=== PATIENT | male | born 1950 | race Caucasian/White ===

== ENCOUNTER 2017-10-11 23:11 | Observation (INO) | payer MEDICARE ==
[~2017-10-11 23:11] MED LIST: ATOR10TA15 PO; GABA600T PO; HYDR25TA5 PO; LAMI250T PO; LOSA100T PO; METF1000 PO; METO25TA3 PO; WARF-22 PO
[2017-10-11] MEDS ORDERED: SODIUM CHLORIDE 0.9% FLUSH 10 ML FLUSH IV FLUSH PRN (23:45)
[2017-10-11] MEDS ORDERED: GLUCAGON 1 MG/ML VIAL OTHER PRN (23:45)
[2017-10-11] MEDS ORDERED: DEXTROSE 50% IN WATER 50 ML VIAL(D50) IV PUSH PRN (23:45)
[2017-10-12] VITALS (8 sets, daily range): BP systolic 114–136; BP diastolic 55–73; PULSE 72–95; RESP 18–20; TEMP 96.2–97; O2SAT 92–97
[2017-10-12] MEDS: ACETAMINOPHEN 325 MG TAB PO PRN ×4 (06:29→21:57)
[2017-10-12 07:46] LABS: INTERNATIONAL NORMALIZED RATIO 2.7 RATIO; PROTHROMBIN TIME - PATIENT 27.4 SEC (9.8-11.6)
[2017-10-12 08:09] LABS: CALCIUM 9.4 MG/DL (8.5-10.1)
[2017-10-12 08:10] LABS: BICARBONATE 26.3 MEQ/L (21.0-32.0)
[2017-10-12 08:21] LABS: AUTOMATED NEUTROPHIL # 5.8 TH/MM3 (1.8-7.7); BASOPHIL % 0.2 % (0.0-2.0); EOSINOPHIL # 0.2 TH/MM3 (0-0.4); EOSINOPHIL % 1.8 % (0.0-4.0); HEMATOCRIT 37.8 % (39.0-51.0); LYMPHOCYTE # 2.3 TH/MM3 (1.0-4.8); MEAN CELL VOLUME 86.9 FL (80.0-100.0); MEAN CORPUSCULAR HGB CONC 34.5 % (32.0-36.0); MEAN PLATELET VOLUME 9.1 FL (7.0-11.0); MONOCYTE # 0.6 TH/MM3 (0-0.9); PLATELET COUNT 173 TH/MM3 (150-450); RED BLOOD COUNT 4.34 MIL/MM3 (4.50-5.90); RED CELL DISTRIBUTION WIDTH 14.1 % (11.6-17.2); WHITE BLOOD COUNT 8.9 TH/MM3 (4.0-11.0)
[2017-10-12] MEDS: INSULIN ASPART SUPPLEMENTAL SCALE SQ SCH ×4 (08:48→21:00)
[2017-10-12] MEDS ORDERED: GABA800T PO (08:55)
[2017-10-12] MEDS ORDERED: METO-426 PO (08:56)
[2017-10-12] MEDS ORDERED: GABAPENTIN 300 MG CAP PO SCH (09:00)
[2017-10-12] MEDS: SODIUM CHLORIDE 0.9% FLUSH 10 ML FLUSH IV FLUSH SCH ×2 (09:04→21:49)
--- NOTE | 2017-10-12 11:16 | HHI.HP ---
HPI Service [facility] Primary Care Physician Non-Staff Admission Diagnosis Diagnoses: Chief Complaint: Syncopal episode Travel History International Travel<30 Days: No Contact w/Intl Traveler <30 Da: No Traveled to Known Affected Are: No History of Present Illness This is a pleasant 67 y/o male with Obesity, DM II, Hypertension, not taking medicines for hyperlipidemia, on chronic anticoagulation secondary to Left DVT, PAD status post revascularization and stent placement on left leg, he has no more information about this, status post Stroke five years ago with left Hemiparesis, now has peripheral Neuropathy on right arm, he states he was in his kitchen and when he tried to turn he tripped and fell without any dizziness, lightheadedness, no loss of consciousness he landed on his left hip developed pain, then his called 911 due to that he passed out he does not remember the episode. came to ER at [place] and I was told to come to perform the H and P but I do not have any information in the Chart. Review of Systems Constitutional: DENIES: Fever, Chills, Change in appetite Endocrine: DENIES: Heat/cold intolerance Eyes: DENIES: Blurred vision, Eye pain Except as stated in HPI: all other systems reviewed are Neg Past Family Social History Past Medical History Obesity DM II Hypertension Left Leg DVT PAD status post revascularization and stent placement on left leg Stroke five years ago with left Hemiparesis Peripheral Neuropathy on right arm chronic Warfarin use Past Surgical History Microdyscectomy for disc herniation Reported Medications Reported Meds & Active Scripts Active Reported Metoprolol Tartrate 75 Mg Tab 75 Mg PO BID Gabapentin 800 Mg Tab 800 Mg PO TID Metformin (Metformin HCl) 1,000 Mg Tab 1,000 Mg PO BIDPC Warfarin 10 Mg Tab 10 Mg PO DAILY Hydrochlorothiazide 25 Mg Tab 25 Mg PO BID Losartan (Losartan Potassium) 100 Mg Tab 100 Mg PO DAILY Allergies: Coded Allergies: No Known Drug Allergies (Verified Allergy, Unknown, 10/11/17) Active Ordered Medications Current Medications Medications (Trade) Dose Ordered Sig/Jodie Route Start Time Stop Time Status Last Admin (D50w (Vial) Inj) 50 ml UNSCH PRN IV PUSH 10/11/17 23:45 (Glucagon Inj) 1 mg UNSCH PRN OTHER 10/11/17 23:45 (NovoLOG SUPPLEMENTAL SCALE) 1 ACHS SLIDING SCALE SQ 10/12/17 08:00 (NS Flush) 2 ml UNSCH PRN IV FLUSH 10/11/17 23:45 (NS Flush) 2 ml BID IV FLUSH 10/12/17 09:00 10/12/17 09:04 (Lipitor) 10 mg HS PO 10/12/17 21:00 (Neurontin) 600 mg TID PO 10/12/17 09:00 10/12/17 08:50 (Coumadin) 10 mg DAILY@2000 PO 10/12/17 20:00 (Tylenol) 650 mg Q4H PRN PO 10/12/17 02:15 10/12/17 06:29 Pharmacy Profile Note 0 ml @ 0 mls/hr UNSCH OTHER 10/12/17 02:15 Family History Father with Alzheimer's Disease Mother with CAD Brother with DM Social History Lives with his Smokes half pack to one pack of cigarettes since he was 16 years of age denies other toxic habits. Physical Exam Vital Signs Vital Signs Date Time Temp Pulse Resp B/P (MAP) Pulse Ox O2 Delivery O2 Flow Rate FiO2 10/12/17 07:50 97.0 76 20 121/73 (89) 92 10/12/17 04:00 96.9 89 18 121/62 (81) 96 10/12/17 01:00 96.2 86 18 136/62 (86) 96 Physical Exam GENERAL: Obese patient. no acute distress. SKIN: No rashes, ecchymoses or lesions. Cool and dry. HEAD: Atraumatic. Normocephalic. No temporal or scalp tenderness. EYES: Pupils equal round and reactive. Extraocular motions intact. No scleral icterus. No injection or drainage. ENT: Nose without bleeding, purulent drainage or septal hematoma. Throat without erythema, tonsillar hypertrophy or exudate. Uvula midline. Airway patent. NECK: Trachea midline. No JVD or lymphadenopathy. Supple, nontender, no meningeal signs. CARDIOVASCULAR: Regular rate and rhythm without murmurs, gallops, or rubs. RESPIRATORY: Clear to auscultation. Breath sounds equal bilaterally. No wheezes , rales, or rhonchi. GASTROINTESTINAL: Abdomen soft, non-tender, nondistended. No hepato-splenomegaly , or palpable masses. No guarding. MUSCULOSKELETAL: Extremities without clubbing, cyanosis, or edema. NEUROLOGICAL: Awake and alert. no focal deficits, uses a cane to walk he states has easy loss of balance. Laboratory Laboratory Tests Test 10/12/17 06:50 10/12/17 09:10 White Blood Count 8.9 Red Blood Count 4.34 Hemoglobin 13.0 Hematocrit 37.8 Mean Corpuscular Volume 86.9 Mean Corpuscular Hemoglobin 30.0 Mean Corpuscular Hemoglobin Concent 34.5 Red Cell Distribution Width 14.1 Platelet Count 173 Mean Platelet Volume 9.1 Neutrophils (%) (Auto) 65.0 Lymphocytes (%) (Auto) 26.0 Monocytes (%) (Auto) 7.0 Eosinophils (%) (Auto) 1.8 Basophils (%) (Auto) 0.2 Neutrophils # (Auto) 5.8 Lymphocytes # (Auto) 2.3 Monocytes # (Auto) 0.6 Eosinophils # (Auto) 0.2 Basophils # (Auto) 0.0 CBC Comment DIFF FINAL Differential Comment Prothrombin Time 27.4 Prothromb Time International Ratio 2.7 Blood Urea Nitrogen 17 Creatinine 1.00 Random Glucose 118 Calcium Level 9.4 Sodium Level 136 Potassium Level 3.4 Chloride Level 100 Carbon Dioxide Level 26.3 Anion Gap 10 Estimat Glomerular Filtration Rate 75 Troponin I LESS THAN 0.02 Result Diagram: 10/12/17 0650 10/12/17 0650 Imaging CXR no acute disease head CT negative Hip X ray no fracture on left hip. Caprini VTE Risk Assessment Caprini VTE Risk Assessment: Mod/High Risk (score >= 2) Caprini Risk Assessment Model Point Value = 1 Point Value = 2 Point Value = 3 Point Value = 5 Age 41-60 Minor surgery BMI > 25 kg/m2 Swollen legs Varicose veins or History of unexplained or recurrent spontaneous Oral contraceptives or hormone replacement Sepsis (< 1 month) Serious lung disease, including pneumonia (< 1 month) Abnormal pulmonary function Acute myocardial infarction Congestive heart failure (< 1 month) History of inflammatory bowel disease Medical patient at bed rest Age 61-74 Arthroscopic surgery Major open surgery (> 45 min) Laparoscopic surgery (> 45 min) Malignancy Confined to bed (> 72 hours) Immobilizing plaster cast Central venous access Age >= 75 History of VTE Family history of VTE Factor V Leiden Prothrombin [id number] Lupus anticoagulant Anticardiolipin antibodies Elevated serum homocysteine Heparin-induced thrombocytopenia Other congenital or acquired thrombophilia Stroke (< 1 month) Elective arthroplasty Hip, pelvis, or leg fracture Acute spinal cord injury (< 1 month) Prophylaxis Regimen Total Risk Factor Score Risk Level Prophylaxis Regimen 0-1 Low Early ambulation 2 Moderate Order ONE of the following: *Sequential Compression Device (SCD) *Heparin 5000 units SQ BID 3-4 Higher Order ONE of the following medications: *Heparin 5000 units SQ TID *Enoxaparin/Lovenox 40 mg SQ daily (WT < 150 kg, CrCl > 30 mL/min) *Enoxaparin/Lovenox 30 mg SQ daily (WT < 150 kg, CrCl > 10-29 mL/min) *Enoxaparin/Lovenox 30 mg SQ BID (WT < 150 kg, CrCl > 30 mL/min) AND/OR *Sequential Compression Device (SCD) 5 or more Highest Order ONE of the following medications: *Heparin 5000 units SQ TID (Preferred with Epidurals) *Enoxaparin/Lovenox 40 mg SQ daily (WT < 150 kg, CrCl > 30 mL/min) *Enoxaparin/Lovenox 30 mg SQ daily (WT < 150 kg, CrCl > 10-29 mL/min) *Enoxaparin/Lovenox 30 mg SQ BID (WT < 150 kg, CrCl > 30 mL/min) AND *Sequential Compression Device (SCD) Assessment and Plan Assessment and Plan 1. Syncopal episode in a patient with multiple risk factors, no past Cardiac history but has PAD, status post Stroke with left hemiparesis five years ago, now with difficulties for ambulation, uses a cane, no EKG on chart, will get EKG, Echocardiogram, continue Cardiac Monitoring, Cardiac enzymes, continue Home medicines and follow with debt collection specialist consult, PT, OT consults. 2. Obesity strongly recommended diet and exercise. 3. DM II on hold Metformin continue sliding scale 4. Hypertension controlled re start his home medicines 5. Left Leg DVT five years ago on chronic Coumadin INR 2.7 will continue home Coumadin and Pharmacy consult for management 6. PAD status post revascularization and stent placement on left leg 7. Stroke five years ago with left Hemiparesis 8. Peripheral Neuropathy on right arm continue Gabapentin 9. Status post Fall with secondary left Hip trauma no fracture. follow laboratory. Hemoglobin A1C, Lipid Panel, Vitamin B12, Folate, TSH and Free T4. Cardiology consult Handicrafts Teacher consult PT and OT consult DVT prophylaxis with Warfarin INR 2.7 therapeutic. Code Status full code Discussed Condition With patient and nurse. Physician Certification 2 Midnight Certification Type: Admission for Inpatient Services Order for Inpatient Services The services are ordered in accordance with Medicare regulations or non- Medicare payer requirements, as applicable. In the case of services not specified as inpatient-only, they are appropriately provided as inpatient services in accordance with the 2-midnight benchmark. Estimated LOS (days): 3 days is the estimated time the patient will need to remain in the hospital, assuming treatment plan goals are met and no additional complications. Post-Hospital Plan: Not yet determined Se Pedraza MD Oct 12, 2017 11:16
[2017-10-12] MEDS: GABAPENTIN 400 MG CAP PO SCH ×2 (12:26→17:53)
[2017-10-12 14:06] LABS: TROPONIN I LESS THAN 0.02 NG/ML (0.02-0.05)
[2017-10-12 17:00] LABS: CHOLESTEROL 127 MG/DL (120-200); TRIGLYCERIDES 130 MG/DL (42-150)
[2017-10-12 17:04] LABS: FREE T4 1.14 NG/DL (0.76-1.46)
[2017-10-12 17:25] LABS: CHOLESTEROL/ HDL RATIO 3.69 RATIO; FOLATE 7.2 NG/ML (3.1-17.5); HDL CHOLESTEROL 34.4 MG/DL (40.0-60.0); LDL CHOLESTEROL 67 MG/DL (0-99)
[2017-10-12 18:29] LABS: TROPONIN I LESS THAN 0.02 NG/ML (0.02-0.05)
[2017-10-12] MEDS ORDERED: WARFARIN SOD 10 MG TAB PO SCH (20:00)
[2017-10-12] MEDS ORDERED: ATORVASTATIN 10 MG TAB PO SCH (21:00)
[2017-10-12] MEDS: METOPROLOL TARTRATE 25 MG TAB PO SCH (21:50)
[2017-10-12] MEDS: HYDROCHLOROTHIAZIDE 25 MG TAB PO SCH (21:51)
[2017-10-13] VITALS: BP 117/64; PULSE 66; RESP 20; TEMP 96; O2SAT 96
[2017-10-13 04:00] VITALS: BP 123/58; PULSE 65; RESP 20; TEMP 96.2; O2SAT 98
[2017-10-13 06:26] LABS: BICARBONATE 28.9 MEQ/L (21.0-32.0); CALCIUM 8.9 MG/DL (8.5-10.1); MAGNESIUM 2.2 MG/DL (1.5-2.5)
[2017-10-13 06:29] LABS: CREATININE 0.97 MG/DL (0.60-1.30)
[2017-10-13 06:30] LABS: PHOSPHORUS 3.1 MG/DL (2.5-4.9)
[2017-10-13 06:36] LABS: INTERNATIONAL NORMALIZED RATIO 1.9 RATIO; PROTHROMBIN TIME - PATIENT 18.8 SEC (9.8-11.6)
[2017-10-13 08:00] VITALS: BP 106/72; PULSE 75; PULSE 84; RESP 14; TEMP 97.8; O2SAT 100
[2017-10-13] MEDS ORDERED: LOSARTAN 50 MG TAB PO SCH (09:00)
[2017-10-13] MEDS: ACETAMINOPHEN 325 MG TAB PO PRN ×2 (09:35→17:18)
[2017-10-13] MEDS: HYDROCHLOROTHIAZIDE 25 MG TAB PO SCH (09:35)
[2017-10-13] MEDS: GABAPENTIN 400 MG CAP PO SCH ×3 (09:36→17:14)
[2017-10-13] MEDS: SODIUM CHLORIDE 0.9% FLUSH 10 ML FLUSH IV FLUSH SCH (09:36)
[2017-10-13] MEDS: METOPROLOL TARTRATE 25 MG TAB PO SCH (09:36)
[2017-10-13] MEDS: INSULIN ASPART SUPPLEMENTAL SCALE SQ SCH ×3 (10:00→17:22)
--- NOTE | 2017-10-13 10:53 | EKG ---
Date Performed: 10/12/2017 Time Performed: 11:19:12 PTAGE: 67 years EKG: Sinus rhythm NORMAL ECG NO PREVIOUS TRACING DOCTOR: Gigi Monreal Interpretating Date/Time 10/13/2017 10:50:36
[2017-10-13 12:00] VITALS: BP 116/57; PULSE 61; RESP 14; TEMP 98; O2SAT 97
--- NOTE | 2017-10-13 14:11 | HHI.PR ---
Subjective Remarks Follow-up Syncopal episode. Patient seen and examined, lying in bed comfortably , no apparent distress, no reports of any acute events overnight. Slept well. Denies any chest pain. No arrhythmias on monitor overnight. Denies any nausea or vomiting or diarrhea. Denies any fever, chills, shortness of breath. at bedside. Both updated about patient's status. Awaiting cardiology consult, echo done today. Objective Vitals Vital Signs Date Time Temp Pulse Resp B/P (MAP) Pulse Ox O2 Delivery O2 Flow Rate FiO2 10/13/17 08:00 97.8 75 14 106/72 (83) 100 10/13/17 04:00 96.2 65 20 123/58 (79) 98 10/13/17 00:00 96.0 66 20 117/64 (81) 96 10/12/17 20:00 89 10/12/17 20:00 96.6 95 20 124/55 (78) 97 10/12/17 15:50 96.8 76 20 114/71 (85) 96 10/12/17 15:30 72 I/O 10/12/17 10/12/17 10/12/17 10/13/17 10/13/17 10/13/17 07:00 15:00 23:00 07:00 15:00 23:00 Intake Total 240 ml 1015 ml 1650 ml Output Total 450 ml 1340 ml Balance 240 ml 565 ml 310 ml Intake Oral 240 ml 1015 ml 1650 ml Output Urine Total 450 ml 1340 ml # Voids 1 # Bowel Movements 1 0 1 Result Diagram: 10/12/17 0650 10/13/17 0530 Objective Remarks GENERAL: Well-nourished, well-developed patient in NAD. SKIN: Warm and dry. No rash. Left hip assessed, pain to palpation, no ecchymosis or discoloration, firm to touch. HEAD: Normocephalic. Atraumatic. EYES: Pupils equal and round. No scleral icterus. No injection or drainage. ENT: No nasal bleeding or discharge. Mucous membranes pink and moist. NECK: Supple. Trachea midline. CARDIOVASCULAR: Regular rate and rhythm. S1, S2 noted. No murmur appreciated. RESPIRATORY: No accessory muscle use. Clear to auscultation. Breath sounds equal bilaterally. GASTROINTESTINAL: Abdomen soft, round, non-tender, nondistended. Normoactive bowel sounds x4. MUSCULOSKELETAL: No obvious deformities. Extremities without clubbing, cyanosis , or edema. NEUROLOGICAL: Awake and alert. No obvious cranial nerve deficits. Motor grossly within normal limits. 5/5 muscle strength in bilateral upper and lower extremities. Normal speech. PSYCHIATRIC: Appropriate mood and affect; insight and judgment normal. A/P Assessment and Plan 1. Syncopal episode in a patient with multiple risk factors, no past Cardiac history but has PAD, status post Stroke with left hemiparesis five years ago, now with difficulties for ambulation, uses a cane. EKG reviewed showing SR, controlled HR, no ST changes. Cardiac telemetry reviewed, no events overnight. Cardiac enzymes flat. Continue Home medicines and follow with curriculum development specialist consult, appreciate input and recommendation. PT, OT consults. TSH WNL. Folate WNL. 2. Obesity strongly recommended diet and exercise. 3. DM II on hold Metformin continue sliding scale. Awaiting hemoglobin a1c. Lipid panel WNL. 4. Hypertension controlled re start his home medicines 5. Left Leg DVT five years ago on chronic Coumadin INR 2.7 will continue home Coumadin and Pharmacy consult for management 6. PAD status post revascularization and stent placement on left leg 7. Stroke five years ago with left Hemiparesis 8. Peripheral Neuropathy on right arm continue Gabapentin 9. Status post Fall with secondary left Hip trauma no fracture. DVT prophylaxis: Coumadin. SCDs. Discharge Planning No further input from cardiology. OK to Discharge home. Follow up ECHO results outpatient. Estephania Kimball Oct 13, 2017 14:11
[2017-10-13 17:12] LABS: HEMOGLOBIN A1C 6.1 % (4.3-6.0)
--- NOTE | 2017-10-13 17:29 | HHI.DCPOC ---
Discharge Care Plan Diagnosis: (1) Syncope Goals to Promote Your Health * To prevent worsening of your condition and complications * To maintain your health at the optimal level Directions to Meet Your Goals Take your medications as prescribed Follow your dietary instruction Follow activity as directed Keep your appointments as scheduled Take your immunizations and boosters as scheduled If your symptoms worsen call your PCP, if no PCP go to Urgent Care Center or Emergency Room Smoking is Dangerous to Your Health. Avoid second hand smoke Call the 24-hour hour crisis hotline for domestic abuse at Estephania Kimball Oct 13, 2017 17:29
[2017-10-13] MEDS ORDERED: LIPI10TA PO (17:31)
[2017-10-13 18:00] VITALS: BP 129/70; PULSE 64; RESP 14; TEMP 97.5; O2SAT 96
--- NOTE | 2017-10-13 19:09 | ECHRPT ---
Indication: cardiomyopathy CONCLUSIONS The left ventricular systolic function is hyperdynamic with an estimated ejection fraction in the ra nge of 65- 70%. Normal left ventricular size. Wall thickness is normal. No regional wall motion abnormalities are present. Aortic valve sclerosis is present. BP: 123 / 58 HR: 79 Rhythm: Sinus MEASUREMENTS (Male / Female) Normal Values Technical Quality:Fair 2D ECHO LV Diastolic Diameter PLAX 5.1 cm 4.2 - 5.9 / 3.9 - 5.3 cm LV Systolic Diameter PLAX 3.1 cm IVS Diastolic Thickness 1.1 cm 0.6 - 1.0 / 0.6 - 0.9 cm LVPW Diastolic Thickness 1.1 cm 0.6 - 1.0 / 0.6 - 0.9 cm LV Relative Wall Thickness 0.4 RV Internal Dim ED PLAX 3.1 cm LVOT Diameter 2.0 cm M-MODE Aortic Root Diameter MM 2.5 cm LA Systolic Diameter MM 3.9 cm LA Ao Ratio MM 1.6 AV Cusp Separation MM 2.1 cm DOPPLER AV Peak Velocity 148.0 cm/s AV Peak Gradient 8.8 mmHg LVOT Peak Velocity 117.0 cm/s LVOT Peak Gradient 5.5 mmHg AV Area Cont Eq pk 2.5 cm MV Area PHT 3.9 cm Mitral E Point Velocity 84.4 cm/s Mitral A Point Velocity 83.4 cm/s Mitral E to A Ratio 1.0 LV E' Lateral Velocity 4.8 cm/s Mitral E to LV E' Lateral Ratio 17.7 LV E' Septal Velocity 6.8 cm/s Mitral E to LV E' Septal Ratio 12.4 PV Peak Velocity 119.0 cm/s PV Peak Gradient 5.7 mmHg FINDINGS LEFT VENTRICLE The left ventricular systolic function is hyperdynamic with an estimated ejection fraction in the ra nge of 65- 70%. Normal left ventricular size. Wall thickness is normal. No regional wall motion abnormalities are present. RIGHT VENTRICLE Normal right ventricular size and systolic function. LEFT ATRIUM The left atrial size is normal. RIGHT ATRIUM The right atrial size is normal. ATRIAL SEPTUM Normal atrial septal thickness without atrial level shunting by limited color doppler interrogation. AORTA The aortic root and proximal ascending aorta are normal in size on limited imaging. MITRAL VALVE Structurally normal mitral valve. No mitral valve stenosis or regurgitation. AORTIC VALVE Trileaflet aortic valve. Aortic valve sclerosis is present. TRICUSPID VALVE Structurally normal tricuspid valve. No tricuspid valve stenosis or regurgitation. PULMONARY VALVE The pulmonary valve is not well visualized. VESSELS The inferior vena cava is normal in size. PERICARDIUM No pericardial effusion. Gen Solorzano MD, FACC (Electronically Signed) Final Date:13 October 2017 19:08
--- NOTE | 2017-10-13 20:21 | MB ---
cc: ANISH LITTLE MD DATE OF CONSULTATION 10/13/2017 REASON FOR CONSULTATION Syncope. HISTORY OF PRESENT ILLNESS Mr. Webb is a 67-year-old man who does have a history of hypertension, diabetes and obesity. He reports he was celebrating his birthday and was out drinking the night prior. He subsequently did not have any p.o. fluid intake for approximately 1 day and subsequently had a syncopal episode after a fall in the kitchen. The patient is currently asymptomatic. PAST MEDICAL HISTORY Significant for: 1. Hypertension. 2. Diabetes. 3. Obesity. 4. Left leg DVT. 5. PDA with left leg stent. 6. Cerebrovascular accident with left-sided hemiparesis. MEDICATIONS Outpatient medications include: 1. Metoprolol. 2. Gabapentin. 3. Metformin. 4. Warfarin. 5. Hydrochlorothiazide. 6. Losartan. ALLERGIES NO KNOWN DRUG ALLERGIES. FAMILY HISTORY Positive for CAD. SOCIAL HISTORY The patient does smoke. PHYSICAL EXAMINATION VITAL SIGNS: On physical examination vital signs are 98.0, 61, 14, 116/57. GENERAL: He is an obese man in no apparent distress. NECK: His neck is free from JVD. LUNGS: His lungs are bilaterally clear to auscultation. CARDIOVASCULAR: He has normal S1-S2. No rubs or gallops are appreciated. ABDOMEN: Soft. EXTREMITIES: Free from edema. LABORATORY FINDINGS Significant for serial troponins of less than 0.02. IMAGING Chest x-ray was negative for any acute process. IMPRESSION Syncope - the patient does appear to have been dehydrated. He has not had any cardiac symptoms such as chest pain or shortness of breath. At this point he is asymptomatic. Echocardiogram is pending. It is reasonable for him to be discharged from a cardiovascular perspective. The patient was encouraged to be compliant with reasonable alcohol consumption, proper hydration and diabetic control. Anish Little M.D. STANISLAW/BRENDA /5:29 PM /8:07 PM
== END 2017-10-13 18:56 | disposition home or self-care (01) ==
LOC: PHEDDLT 10-12 00:52 → PH3A 10-12 01:02
PROVIDERS: ADMIT Hospitalist; ATTEND Hospitalist
DX: R55 Syncope and collapse (principal); I10 Essential (primary) hypertension; E66.9 Obesity, unspecified; E11.9 Type 2 diabetes mellitus without complications; Z79.01 Long term (current) use of anticoagulants; Z79.84 Long term (current) use of oral hypoglycemic drugs; I73.9 Peripheral vascular disease, unspecified; G62.9 Polyneuropathy, unspecified; I69.354 Hemiplegia and hemiparesis following cerebral infarction affecting left non-dominant side; M25.552 Pain in left hip; Z86.718 Personal history of other venous thrombosis and embolism; Z79.899 Other long term (current) drug therapy; F17.210 Nicotine dependence, cigarettes, uncomplicated; W19.XXXA Unspecified fall, initial encounter; Y92.000 Kitchen of unspecified non-institutional (private) residence as the place of occurrence of the external cause; E86.0 Dehydration
CPT/HCPCS: 80048; 80061; 82550; 82607; 82746; 82948; 83036; 83735; 84100; 84439; 84443; 84484; 85025; 85610; 93005; 93306; 97162; 97166; G0378; G8987; G8988; G8989; J1815